=== PATIENT | male | born 1990 | race Two or more races ===

== ENCOUNTER 2022-10-09 17:18 | Emergency (ER) | payer OTHER ==
[~2022-10-09] VITALS: Ht 193 cm; Wt 86.2 kg
--- NOTE | 2022-10-09 17:30 | NUR ---
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
[2022-10-09 17:50] LABS: BASOPHILS % (AUTO) 0.6 % (0.0-2.0); EOSINOPHILS % (AUTO) 1.5 % (0.0-6.0); HEMATOCRIT 47 % (39-51); HEMOGLOBIN 15.9 g/dL (13.5-17.5); LYMPHOCYTES # (AUTO) 1.2 K/uL (0.8-4.8); LYMPHOCYTES % (AUTO) 29.8 % (20.0-44.0); MEAN CORPUSCULAR HGB CONC 34 g/dl (31.0-36.0); MEAN CORPUSCULAR VOLUME 92 fL (80-96); MONOCYTES # (AUTO) 0.3 K/uL (0.1-1.30); MONOCYTES % (AUTO) 7.3 % (2.0-12.0); NEUTROPHILS # (AUTO) 2.4 K/uL (1.8-8.9); NEUTROPHILS % (AUTO) 60.8 % (43.0-81.0); PLATELET COUNT (AUTO) 230 K/uL (150-450); RED BLOOD CELL COUNT(AUTO) 5.17 MIL/uL (4.5-6.0); WHITE BLOOD COUNT (AUTO) 3.9 K/uL (4.3-11.0)
[2022-10-09 18:17] LABS: CARBON DIOXIDE 28 mmol/L (21-32); CHLORIDE 103 mmol/L (98-107); CREATININE 1.2 mg/dL (0.6-1.3); GLUCOSE 98 mg/dL (74-106); SODIUM SERUM 138 mmol/L (136-145); UREA NITROGEN, BLOOD 23 mg/dL (7-18)
[2022-10-09] MEDS ORDERED: KETOROLAC TROMETHAMINE INJ 30 MG/ML VIAL ONE (18:19)
[2022-10-09] MEDS: KETOROLAC TROMETHAMINE INJ 30 MG/ML VIAL IV ONE (18:22)
--- NOTE | 2022-10-09 21:25 | NUR ---
Patient discharged to home in stable condition. Written and verbal after care instructions given. Patient verbalizes understanding of instruction. IV removed. Catheter intact and site benign. Pressure and 4x4 applied to site. No bleeding noted. PT ambulatory with a steady gait
[2022-10-09 21:26] VITALS: BP 117/44
[2022-10-09 21:58] LABS: BAND % (MANUAL) 2 % (0.0-5.0); LYMPHOCYTES % (MANUAL) 39 % (16-48); MONOCYTES % (MANUAL) 7 % (0-11.0); NEUTROPHILS % (MANUAL) 52 (42-76)
== END 2022-10-09 21:56 | disposition home or self-care (01) ==
LOC: ER 17:20
DX: R07.89 Other chest pain (principal)
CPT/HCPCS: 99285; 96374; 71045; 93005 ×5; 85025; 80048; 85378; 36415; 84484 ×2; 85007; J1885